=== PATIENT | male | born 1965 ===

== ENCOUNTER 2017-12-25 13:40 | Emergency (ER) | payer OTHER ==
[2017-12-25 15:05] VITALS: BP 148/102; PULSE 83; RESP 18; TEMP 98.1; O2SAT 100
[2017-12-25] MEDS ORDERED: Penicillin G Benzathine 2.4 Mill Unit/4 ml Syr IM STA (17:16)
--- NOTE | 2017-12-25 17:17 | C.PDOC ---
History Of Present Illness Patient presents to ED c/o B/L hand swelling, pain and lesions for the past 3 days. He reports a history of similar symptoms 16 years ago in [place], states he was given "penicillin injection" and symptoms resolved. He denies pain, fever, discharge, trauma/injuries. Time Seen by Provider: 12/25/17 17:01 Chief Complaint (Nursing): Abnormal Skin Integrity History Per: Patient History/Exam Limitations: no limitations Onset/Duration Of Symptoms: Days (3) Current Symptoms Are (Timing): Still Present Location Of Injury: Right: Hand, Left: Hand Severity: Moderate Past Medical History Reviewed: Historical Data, Nursing Documentation, Vital Signs Vital Signs: Last Vital Signs Temp 98.1 F 12/25/17 15:02 Pulse 83 12/25/17 15:02 Resp 18 12/25/17 15:02 BP 148/102 H 12/25/17 15:02 Pulse Ox 100 12/25/17 15:02 - Medical History PMH: No Chronic Diseases Family History: States: No Known Family Hx - Social History Hx Alcohol Use: No Hx Substance Use: No - Immunization History Hx Tetanus Toxoid Vaccination: No Hx Influenza Vaccination: No Hx Pneumococcal Vaccination: No Review Of Systems Except As Marked, All Systems Reviewed And Found Negative. Constitutional: Negative for: Fever, Chills Cardiovascular: Negative for: Chest Pain Respiratory: Negative for: Shortness of Breath Skin: Positive for: Rash (scattered pustules on B/L hands with swelling ) Physical Exam - Physical Exam Appears: Well, Non-toxic, No Acute Distress Skin: Other (scattered pustules on dorsum of B/L digits, no lesions on palms, two pustules on back of upper neck, nonvesicular ) Head: Normacephalic Eye(s): bilateral: Normal Inspection Oral Mucosa: Moist Cardiovascular: Rhythm Regular Respiratory: Normal Breath Sounds, No Rales, No Rhonchi, No Wheezing Neurological/Psych: Oriented x3 ED Course And Treatment O2 Sat by Pulse Oximetry: 100 Disposition Counseled Patient/Family Regarding: Diagnosis, Need For Followup, Rx Given - Disposition Disposition: HOME/ ROUTINE Disposition Time: 17:35 Condition: STABLE Additional Instructions: FOLLOW UP WITH YOUR DOCTOR/CLINIC IN 1-2 DAYS ELEVATE YOUR HANDS MUCH POSSIBLE TO DECREASE SWELLING USE MEDICATIONS DIRECTED RETURN TO ER IF SYMPTOMS WORSEN Prescriptions: Cephalexin [Keflex] 500 mg PO BID #14 capsule Naproxen 375 mg PO BID PRN #20 tablet PRN Reason: pain Sulfamethoxazole/Trimethoprim [Bactrim DS 800 mg-160 mg] 1 tab PO BID #14 tab Instructions: Cellulitis (Skin Infection), Adult (DC) Print Language: EAST TIMORESE - Clinical Impression Clinical Impression: Skin pustule, Cellulitis of hand
[2017-12-25] MEDS ORDERED: Naproxen 550 mg Tab PO STA (17:18)
[2017-12-25] MEDS ORDERED: Penicillin G Benzathine 2.4 Mill Unit/4 ml Syr IM ONE (17:35)
[2017-12-25] MEDS ORDERED: Naproxen 550 mg Tab PO ONE (17:35)
== END 2017-12-25 17:41 | disposition home or self-care (01) ==
LOC: C.ER 13:40
DX: L08.9 Local infection of the skin and subcutaneous tissue, unspecified (principal); L03.114 Cellulitis of left upper limb; L03.113 Cellulitis of right upper limb
CPT/HCPCS: 96372; 99283; J0561

== ENCOUNTER 2017-12-28 10:57 | Inpatient (IN) | payer OTHER ==
[2017-12-28 11:53] LABS: BASO # 0.1 K/uL (0.0-0.2); BASO % 0.6 % (0.0-2.0); EOS # 0.1 K/uL (0.0-0.7); EOS % 1.5 % (0.0-4.0); HEMOGLOBIN 15.2 g/dL (12.0-18.0); LYMPH # 1.9 K/uL (1.0-4.3); LYMPH % 19.5 % (20.0-40.0); MEAN CELL VOLUME 84.4 fL (80.0-94.0); MEAN CORPUSCULAR HEMOGLOBIN 28.5 pg (27.0-31.0); MEAN CORPUSCULAR HGB CONC 33.7 g/dL (33.0-37.0); MEAN PLATELET VOLUME 8.6 fL (7.2-11.7); MONO # 1.3 K/uL (0.0-0.8); MONO % 13.5 % (0.0-10.0); NEUT # 6.2 K/uL (1.8-7.0); NEUT % 64.9 % (50.0-75.0); NRBC % 0.1 % (0.0-2.0); RBC 5.34 Mil/uL (4.40-5.90); RED CELL DISTRIBUTION WIDTH 14.2 % (11.5-14.5); WHITE BLOOD COUNT 9.6 K/uL (4.8-10.8)
[2017-12-28 12:03] LABS: INR 1.2; PROTHROMBIN TIME 13.7 SECONDS (9.7-12.2)
[2017-12-28 12:06] LABS: ALBUMIN 4.2 g/dL (3.5-5.0); ALT/SGPT 65 U/L (21-72); AST/SGOT 42 U/L (17-59); BLOOD UREA NITROGEN 20 mg/dL (9-20); GFR AFRICAN-AMERICAN > 60; GFR NON-AFRICAN AMERICAN > 60
[2017-12-28] MEDS ORDERED: Vancomycin 1 gm/NS 200 ml 1 GM/200 ML BAG IVPB STA (12:31)
--- NOTE | 2017-12-28 14:01 | C.PDOC ---
History Of Present Illness 52 y/o male presents to ED with complaints of right infected finger associated with pain and swelling. Patient was seen at ED 2 days ago and given antibiotics , patient states he has taken medication as prescribed but finger continues to worsen. Patient states he had similar episodes years ago and denies fever, chills, nausea, vomiting, numbness or any other complaints at this time. Chief Complaint (Nursing): Abnormal Skin Integrity History Per: Patient History/Exam Limitations: no limitations Onset/Duration Of Symptoms: Days Current Symptoms Are (Timing): Still Present Past Medical History Reviewed: Historical Data, Nursing Documentation, Vital Signs Vital Signs: Last Vital Signs Temp 98.5 F 12/28/17 15:55 Pulse 89 12/28/17 15:55 Resp 20 12/28/17 15:55 BP 128/82 12/28/17 15:55 Pulse Ox 100 12/28/17 15:55 - Medical History PMH: No Chronic Diseases Surgical History: No Surg Hx Family History: States: No Known Family Hx - Social History Hx Alcohol Use: No Hx Substance Use: No - Immunization History Hx Tetanus Toxoid Vaccination: No Hx Influenza Vaccination: No Hx Pneumococcal Vaccination: No Review Of Systems Constitutional: Negative for: Fever, Chills Gastrointestinal: Negative for: Nausea, Vomiting Musculoskeletal: Positive for: Hand Pain Skin: Negative for: Rash Neurological: Negative for: Weakness, Numbness Physical Exam - Physical Exam Appears: Non-toxic, No Acute Distress Skin: Warm, Dry, No Rash Head: Atraumatic, Normacephalic Eye(s): bilateral: Normal Inspection Oral Mucosa: Moist Neck: Normal ROM, Supple Cardiovascular: Rhythm Regular Respiratory: Normal Breath Sounds, No Rales, No Rhonchi, No Wheezing Gastrointestinal/Abdominal: Soft, No Tenderness, No Guarding, No Rebound Extremity: Capillary Refill (<2 seconds), Swelling (to right hand), Other Extremity: Bilateral: Normal ROM Pulses: Left Radial: Normal, Right Radial: Normal Neurological/Psych: Oriented x3, Normal Motor, Normal Sensation ED Course And Treatment - Laboratory Results Result Diagrams: 12/28/17 11:49 12/28/17 11:49 O2 Sat by Pulse Oximetry: 99 (RA) Pulse Ox Interpretation: Normal Disposition - Disposition Disposition: HOSPITALIZED Disposition Time: 12:10 Condition: STABLE - Clinical Impression Clinical Impression: Abscess, Cellulitis - Scribe Statement Saida Gonzalez All medical record entries made by the Izzyibmagdalene were at my direction and personally dictated by me. I have reviewed the chart and agree that the record accurately reflects my personal performance of the history, physical exam, medical decision making, and the department course for this patient. I have also personally directed, reviewed, and agree with the discharge instructions and disposition.
--- NOTE | 2017-12-28 14:46 | CP.PCM.HP ---
History of Present Illness - History of Present Illness History of Present Illness: Patient is a 52 y/o male who presents with infected skin lesions on his L 5th digit, R 4th digit, and two on the back of his neck. He reports that the lesions on his neck developed first (about 1 week ago) and that the lesion on the R hand developed most recently (about 4 days ago). He states that he experienced an identical episode 16 years ago when he lived in [place]; he was told he had a "virus" and was given 5 consecutive daily shots of "Lincocin" during which he experienced full relief. He visited the [facility] ED 3 days prior where he was not admitted and was discharged on PO Keflex and Bactrim which he says have not helped. He complains of pain located to the areas of the lesions. He also reports of fevers and chills that resolved several days prior. He denies headache, sweats, weakness, muscle pain, rash, numbness/tingling, CP, SOB , palpitations, cough, congestion, N/V/C/D. PMH: Denies (with exception of prior episode of lesions 16 years ago) Surg: L knee injection 2 years ago FMH: Denies Meds: Denies (with exception of PO Keflex and Bactrim given to him in ED 3 days prior) Allergies: Seasonal, NKDA Social: Denies tobacco, alcohol, drug use Present on Admission - Present on Admission Any Indicators Present on Admission: No Review of Systems - Review of Systems All systems: reviewed and no additional remarkable complaints except (as per HPI ) Past Patient History - Infectious Disease Hx of Infectious Diseases: None - Past Social History Smoking Status: Never Smoked - MUSCULOSKELETAL/RHEUMATOLOGICAL Hx Falls: No - PSYCHIATRIC Hx Substance Use: No - SURGICAL HISTORY Hx Surgeries: Yes Other/Comment: knee surgery - ANESTHESIA Hx Anesthesia: Yes Hx Anesthesia Reactions: No Hx Malignant Hyperthermia: No Meds Allergies/Adverse Reactions: Allergies Allergy/AdvReac Type Severity Reaction Status Date / Time No Known Allergies Allergy Verified 12/28/17 11:04 Physical Exam - Constitutional Appears: Non-toxic, No Acute Distress - Head Exam Head Exam: ATRAUMATIC, NORMAL INSPECTION, NORMOCEPHALIC - Eye Exam Eye Exam: EOMI, Normal appearance, PERRL Pupil Exam: NORMAL ACCOMODATION, PERRL - ENT Exam ENT Exam: Mucous Membranes Moist, Normal Exam - Neck Exam Additional comments: 2 small indurated lesions of the left kelby kof his neck, mildly tender, no spreading erythema - Respiratory Exam Respiratory Exam: Clear to Auscultation Bilateral, NORMAL BREATHING PATTERN - Cardiovascular Exam Cardiovascular Exam: REGULAR RHYTHM, +S1, +S2 - GI/Abdominal Exam GI & Abdominal Exam: Normal Bowel Sounds, Soft. absent: Tenderness - Extremities Exam Additional comments: Small healing lesion of left 5th digit with minimal surrounding erythema Small erythmatous lesion of right 4th digit with purulent drainage and surrounding erythema up to the wrist; edema extending up to the distal forearm - Back Exam Back exam: NORMAL INSPECTION - Neurological Exam Neurological exam: Alert, Oriented x3 - Psychiatric Exam Psychiatric exam: Normal Affect, Normal Mood - Skin Skin Exam: Warm Results - Vital Signs Recent Vital Signs: Last Vital Signs Temp 98 F 12/28/17 13:58 Pulse 78 12/28/17 13:58 Resp 18 12/28/17 13:58 BP 136/76 12/28/17 13:58 Pulse Ox 99 12/28/17 14:05 - Labs Result Diagrams: 12/28/17 11:49 12/28/17 11:49 Labs: Laboratory Results - last 24 hr 12/28/17 12/28/17 12/28/17 11:49 11:49 11:49 WBC 9.6 RBC 5.34 Hgb 15.2 Hct 45.1 MCV 84.4 MCH 28.5 MCHC 33.7 RDW 14.2 Plt Count 216 MPV 8.6 Neut % (Auto) 64.9 Lymph % (Auto) 19.5 L [place] % (Auto) 13.5 H Eos % (Auto) 1.5 Baso % (Auto) 0.6 Neut # (Auto) 6.2 Lymph # (Auto) 1.9 [place] # (Auto) 1.3 H Eos # (Auto) 0.1 Baso # (Auto) 0.1 PT 13.7 H INR 1.2 APTT 30 Sodium 141 Potassium 4.0 Chloride 101 Carbon Dioxide 25 Anion Gap 19 BUN 20 Creatinine 0.7 L Est GFR ( Amer) > 60 Est GFR (Non-Af Amer) > 60 Random Glucose 93 Calcium 9.0 Total Bilirubin 0.9 AST 42 ALT 65 Alkaline Phosphatase 69 Total Protein 8.6 H Albumin 4.2 Globulin 4.4 H Albumin/Globulin Ratio 1.0 Assessment & Plan - Assessment and Plan (Free Text) Plan: Lesion of right hand with cellulitis and possible abscess * afebrile, no leukocytosis * Dr. Sultana consulted (hand surgery) * f/u hand XR * f/u CT hand * f/u blood cultures * f/u wound culture * Vancomycin 1 g IV QD * Tylenol prn pain Prophylaxis * DVT: Heparin, SCDs * GI: not indicated
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
[2017-12-28] MEDS ORDERED: Lidocaine 1% Inj (20ml) IV ONE (15:50)
[2017-12-28] MEDS ORDERED: Iohexol 300 100 ML IJ ONE (16:18)
--- NOTE | 2017-12-28 16:37 | RAD ---
PROCEDURE: Right ring finger radiographs. HISTORY: abscess r/o osteo COMPARISON: None. TECHNIQUE: AP radiograph of the right hand, as well as spot oblique and lateral images of ring finger were obtained. FINDINGS: RIGHT RING FINGER: No fracture periosteal reaction or cortical destruction seen. JOINTS: Normal. SOFT TISSUES: Marked soft tissue swelling specially 4th proximal digit the dorsal hand soft tissues are also markedly swollen on lateral view. No gas-forming cellulitis seen. OTHER FINDINGS: None. IMPRESSION: No periosteal reaction or cortical destruction to suggest osteomyelitis. Soft tissue swelling consistent with cellulitis. No gas-forming cellulitis noted. These images/imaging modality technique is not sensitive cannot to exclude any abscess. For this consider MRI of the hand
--- NOTE | 2017-12-28 16:47 | RAD ---
PROCEDURE: Left small finger radiographs. HISTORY: abscess r/o osteo COMPARISON: None. TECHNIQUE: AP radiograph of the left hand, as well as spot oblique and lateral images of left small finger were obtained. FINDINGS: LEFT SMALL FINGER: Soft tissue swelling 5th digit proximal aspect. No gas-forming cellulitis.No periosteal reaction or cortical destruction to suggest osteomyelitis. JOINTS: Remarkable SOFT TISSUES: Normal. OTHER FINDINGS: None. IMPRESSION: No periosteal reaction or cortical destruction to suggest osteomyelitis. Fifth digit soft tissue swelling -as above
--- NOTE | 2017-12-28 18:04 | CT ---
PROCEDURE: RIGHT HAND DUE WITH CONTRAST HISTORY: possible finger/hand abscess COMPARISON: Right 4th digit/ hand radiographs. TECHNIQUE: A volumetric CT acquisition of the right hand was performed following dynamic intravenous contrast administration utilizing Visipaque 320 and 100 cc total volume administered. Reformatted datasets provided in sagittal axial and coronal formats including surface rendering reconstructed series. Radiation dose:Total exam DLP = 231.35 mGy-cm. This CT exam was performed using one or more of the following dose reduction techniques: Automated exposure control, adjustment of the mA and/or kV according to patient size, and/or use of iterative reconstruction technique. FINDINGS: A cellulitis pattern is seen affecting the dorsal hand soft tissues diffusely increasingly towards the distal metacarpal level and diminishing towards the wrist soft tissues. This pattern persists into the left 4th digit dorsally where there is also no definitive abscess. An 8 mm abscess is not excluded overlying the distal metaphysis level of the 2nd metacarpal bone dorsally. No emphysematous soft tissue changes are identified throughout the examination and there is no periosteal reaction or cortical erosion to suggest possible osteomyelitis. MRI is more sensitive in that diagnosis however and can be performed as clinically warranted. The A dorsal hand soft tissues appear grossly nonfocal as well as those throughout the digits. No fracture, subluxation, dislocation or destructive bony lesion is identified. Vascular enhancement appears grossly nonfocal throughout. IMPRESSION: An 8 mm abscess may be present overlying the distal 2nd metacarpal bone dorsally with moderately extensive dorsal hand soft tissue edema identified extending into the 4th digit dorsally dorsal soft tissues as well. No abscess is clearly evident involving the 4th digit or any of the remaining digits. No overt CT pattern to suggest osteomyelitis however MRI is more sensitive.
[2017-12-29 07:13] LABS: BASO % 0.3 % (0.0-2.0); EOS # 0.2 K/uL (0.0-0.7); HEMOGLOBIN 14.5 g/dL (12.0-18.0); LYMPH # 1.6 K/uL (1.0-4.3); LYMPH % 31.2 % (20.0-40.0); MEAN CELL VOLUME 84.3 fL (80.0-94.0); MEAN CORPUSCULAR HEMOGLOBIN 28.6 pg (27.0-31.0); MEAN PLATELET VOLUME 8.5 fL (7.2-11.7); MONO # 0.8 K/uL (0.0-0.8); MONO % 15.4 % (0.0-10.0); NEUT # 2.6 K/uL (1.8-7.0); NEUT % 50.1 % (50.0-75.0); NRBC % 0.1 % (0.0-2.0); RBC 5.08 Mil/uL (4.40-5.90); RED CELL DISTRIBUTION WIDTH 14.2 % (11.5-14.5); WHITE BLOOD COUNT 5.3 K/uL (4.8-10.8)
[2017-12-29 07:30] LABS: BLOOD UREA NITROGEN 20 mg/dL (9-20); CALCIUM 8.4 mg/dl (8.6-10.4); GFR AFRICAN-AMERICAN > 60; GFR NON-AFRICAN AMERICAN > 60
[2017-12-29] MEDS: Saccharomyces Boulardi 250 mg Cap PO SCH ×2 (09:33→18:14)
[2017-12-29] MEDS ORDERED: Saccharomyces Boulardi 250 mg Cap PO SCH (10:00)
--- NOTE | 2017-12-29 10:47 | CP.PCM.PN ---
Subjective - Date & Time of Evaluation Date of Evaluation: 12/29/17 Time of Evaluation: 10:44 - Subjective Subjective: PGY-1 surgery progress note for Dr Dubose. No acute events noted overnight. Patient seen resting comfortably in bed. Stated his pain has improved as well as the swelling. Inquired as to why he was still here - informed that it is need for IV abx and possibly I&D of wound. Denied chest pain, shortness of breath, abdominal pain, nausea, vomiting, fever , chills. Objective - Vital Signs/Intake and Output Vital Signs (last 24 hours): Temp Pulse Resp BP Pulse Ox 97.7 F 75 18 110/71 98 12/29/17 07:05 12/29/17 07:05 12/29/17 07:05 12/29/17 07:05 12/29/17 07:05 - Medications Medications: Current Medications Acetaminophen (Tylenol 325mg Tab) 650 mg PO Q6 PRN PRN Reason: Pain, moderate (4-7) Heparin Sodium (Porcine) (Heparin) 5,000 units SC Q12 [facility] Last Admin: 12/29/17 09:33 Dose: 5,000 units Vancomycin/Sodium Chloride (Vancomycin 1 Gm/Ns 200 Ml) 1 gm in 200 mls @ 166.7 mls/hr IVPB Q24H [facility] PRN Reason: Protocol Stop: 01/03/18 12:01 Saccharomyces Boulardii (Florastor) 250 mg PO BID [facility] Last Admin: 12/29/17 09:33 Dose: 250 mg - Labs Labs: 12/29/17 07:01 12/29/17 07:01 PT 13.7 SECONDS (9.7-12.2) H 12/28/17 11:49 INR 1.2 12/28/17 11:49 APTT 30 SECONDS (21-34) 12/28/17 11:49 - Additional Findings Additional findings: - Constitutional Appears: Well, Non-toxic, No Acute Distress - Head Exam Head Exam: ATRAUMATIC, NORMOCEPHALIC - Eye Exam Eye Exam: Normal appearance. absent: Conjunctival injection, Scleral icterus - ENT Exam ENT Exam: Mucous Membranes Moist, Normal Oropharynx - Neck Exam Neck exam: Positive for: Full Rom - Respiratory Exam Respiratory Exam: NORMAL BREATHING PATTERN. absent: Accessory Muscle Use - Cardiovascular Exam Cardiovascular Exam: RRR - GI/Abdominal Exam GI & Abdominal Exam: Soft. absent: Distended, Tenderness - Extremities Exam Additional comments: Right dorsal hand edema, erythema, and induration extending to the PIP joint on fingers 2-4. circular necrotic draining lesion on the dorsal surface of Right fourth finger. Circular open necrotic lesion on dorsal surface of left fourth finger, no drainage, no surrounding erythema Small papule on the left posterior surface of the neck - Back Exam Back exam: NORMAL INSPECTION - Neurological Exam Neurological exam: Alert, Oriented x3 - Psychiatric Exam Psychiatric exam: Normal Affect, Normal Mood - Skin Skin Exam: Dry, Intact, Normal Color, Warm Additional comments: except as noted above Assessment and Plan - Assessment and Plan (Free Text) Assessment: Assessment: Patient it a 52M with cellulitis of right hand with possible abscess, lesion of left hand resolving. Plan: - bedside wound exploration of right hand lesion to encourage drainage - continue antibiotics - recommend soaking hand multiple times daily - CT of the right hand: * An 8 mm abscess may be present overlying the distal 2nd metacarpal bone dorsally with moderately extensive dorsal hand soft tissue edema identified extending into the 4th digit dorsally dorsal soft tissues as well. No abscess is clearly evident involving the 4th digit or any of the remaining digits. No overt CT pattern to suggest osteomyelitis however MRI is more sensitive. - Wound culture 12/28/17: * Gram positive cocci - close monitoring for tendon involvement - no surgical intervention planned at this time. - Recommend ID consult Will continue to follow
[2017-12-29] MEDS ORDERED: Vancomycin 1 gm/NS 200 ml 1 GM/200 ML BAG IVPB SCH (12:00)
--- NOTE | 2017-12-29 13:13 | CP.PCM.PN ---
<Marine Delarosa - Last Filed: 12/29/17 17:02> Subjective - Date & Time of Evaluation Date of Evaluation: 12/29/17 Time of Evaluation: 07:30 - Subjective Subjective: Patient seen and examined at bedside. Patient resting comfortably in bed with no new compaints at this time. Patient says he feels like the erythema has improved. He denies fever, chills, headache, chest pain, SOB, cough, palpitations, abdominal pain, n/v/d/c, and calf pain. Objective - Vital Signs/Intake and Output Vital Signs (last 24 hours): Temp Pulse Resp BP Pulse Ox 97.7 F 75 18 110/71 98 12/29/17 07:05 12/29/17 07:05 12/29/17 07:05 12/29/17 07:05 12/29/17 07:05 - Medications Medications: Current Medications Acetaminophen (Tylenol 325mg Tab) 650 mg PO Q6 PRN PRN Reason: Pain, moderate (4-7) Heparin Sodium (Porcine) (Heparin) 5,000 units SC Q12 [facility] Last Admin: 12/29/17 09:33 Dose: 5,000 units Vancomycin/Sodium Chloride (Vancomycin 1 Gm/Ns 200 Ml) 1 gm in 200 mls @ 166.7 mls/hr IVPB Q24H [facility] PRN Reason: Protocol Stop: 01/03/18 12:01 Last Admin: 12/29/17 11:27 Dose: 166.7 mls/hr Saccharomyces Boulardii (Florastor) 250 mg PO BID [facility] Last Admin: 12/29/17 09:33 Dose: 250 mg - Labs Labs: 12/29/17 07:01 12/29/17 07:01 PT 13.7 SECONDS (9.7-12.2) H 12/28/17 11:49 INR 1.2 12/28/17 11:49 APTT 30 SECONDS (21-34) 12/28/17 11:49 - Additional Findings Additional findings: - Constitutional Appears: Non-toxic, No Acute Distress - Head Exam Head Exam: ATRAUMATIC, NORMAL INSPECTION, NORMOCEPHALIC - Eye Exam Eye Exam: EOMI, Normal appearance, PERRL Pupil Exam: NORMAL ACCOMODATION, PERRL - ENT Exam ENT Exam: Mucous Membranes Moist, Normal Exam - Neck Exam Additional comments: 2 small indurated lesions of the left kelby kof his neck, mildly tender, no spreading erythema - Respiratory Exam Respiratory Exam: Clear to Auscultation Bilateral, NORMAL BREATHING PATTERN - Cardiovascular Exam Cardiovascular Exam: REGULAR RHYTHM, +S1, +S2 - GI/Abdominal Exam GI & Abdominal Exam: Normal Bowel Sounds, Soft. absent: Tenderness - Extremities Exam Additional comments: RIGHT hand edema, erythema, and induration extending from the dorsal wrist to the PIP joint on fingers 2-4. Small, circular necrotic draining lesion on the dorsal surface of RIGHT fourth digit Small circular lesion on dorsal surface of left fourth finger, no drainage, no surrounding erythema - Back Exam Back exam: NORMAL INSPECTION - Neurological Exam Neurological exam: Alert, Oriented x3 - Psychiatric Exam Psychiatric exam: Normal Affect, Normal Mood - Skin Skin Exam: Dry, Intact, Normal Color, Warm Additional comments: except as noted above on exam of extremities Assessment and Plan - Assessment and Plan (Free Text) Plan: RIGHT hand cellulitis with possible abscess * afebrile, no leukocytosis * Dr. Sultana consulted (hand surgery) * Recommends no surgical intervention at this time and only hand soaks * LEFT hand XR: No periosteal reaction or cortical destruction to suggest osteomyelitis. Fifth digit soft tissue swelling * RIGHT hand XR: No periosteal reaction or cortical destruction to suggest osteomyelitis. Soft tissue swelling consistent with cellulitis. No gas-forming cellulitis noted. These images/imaging modality technique is not sensitive cannot to exclude any abscess. For this consider MRI of the hand * CT hand: An 8 mm abscess may be present overlying the distal 2nd metacarpal bone dorsally with moderately extensive dorsal hand soft tissue edema identified extending into the 4th digit dorsally dorsal soft tissues as well. No abscess is clearly evident involving the 4th digit or any of the remaining digits. No overt CT pattern to suggest osteomyelitis however MRI is more sensitive * f/u MRI * f/u blood cultures * wound culture shows gram positive cocci * Vancomycin 1 g IV QD * f/u vanc trough * Zosyn 3.375 IV Q6 * Florastor (not within 2 hours of antibiotics) * Tylenol prn pain Prophylaxis * DVT: Heparin, SCDs * GI: not indicated <Mauri Ludwig - Last Filed: 12/29/17 20:01> Objective - Vital Signs/Intake and Output Vital Signs (last 24 hours): Temp Pulse Resp BP Pulse Ox 98 F 78 20 120/79 95 12/29/17 15:00 12/29/17 15:00 12/29/17 15:00 12/29/17 15:00 12/29/17 15:00 Intake and Output: 12/29/17 12/30/17 18:59 06:59 Intake Total 350 350 Balance 350 350 - Medications Medications: Current Medications Acetaminophen (Tylenol 325mg Tab) 650 mg PO Q6 PRN PRN Reason: Pain, moderate (4-7) Heparin Sodium (Porcine) (Heparin) 5,000 units SC Q12 [facility] Last Admin: 12/29/17 09:33 Dose: 5,000 units Piperacillin Sod/Tazobactam Sod (Zosyn 3.375 Gm Iv Premix) 3.375 gm in 50 mls @ 100 mls/hr IVPB Q6H [facility] PRN Reason: Protocol Last Admin: 12/29/17 16:10 Dose: 100 mls/hr Vancomycin HCl 1,250 mg/ (Sodium Chloride) 250 mls @ 133 mls/hr IVPB Q12H [facility] PRN Reason: Protocol Mupirocin (Bactroban Ointment) 1 gm NS BID [facility] Stop: 01/03/18 10:01 Last Admin: 12/29/17 19:26 Dose: 1 applic Saccharomyces Boulardii (Florastor) 250 mg PO BID [facility] Last Admin: 12/29/17 18:14 Dose: 250 mg - Labs Labs: 12/29/17 07:01 12/29/17 07:01 PT 13.7 SECONDS (9.7-12.2) H 12/28/17 11:49 INR 1.2 12/28/17 11:49 APTT 30 SECONDS (21-34) 12/28/17 11:49 Attending/Attestation - Attestation I have personally seen and examined this patient.: Yes I have fully participated in the care of the patient.: Yes I have reviewed all pertinent clinical information, including history, physical exam and plan: Yes Notes (Text): 12/29/17 19:59 Patient was seen and examined at 3:30 PM Exam, assessment and plan were gone over with the resident. F/U MRI Right Hand to help rule out Osteomyelitis. Added Zosyn 3.375 gm IV Q6H to Vancomycin 1 gm IV Q12H. F/U sensitivities to the wound culture and adjust antibiotics accordingly. F/U further recommendations from MANA Potts. Mauri Ludwig D.O.
[2017-12-29] MEDS ORDERED: Piperacillin/Tazobact 3.375 GM in Sodium Chloride 100 ML IVPB SCH (15:15)
[2017-12-29] MEDS: Piperacill/Tazo 3.375gm in Dex 3.375 GM/50 ML BAG IVPB SCH ×2 (16:10→21:38)
[2017-12-29 16:43] VITALS: RESP 20
[2017-12-29] MEDS ORDERED: Gadodiamide 287 mg/ml 20 ml IV ONE (17:20)
--- NOTE | 2017-12-29 18:41 | MRI ---
EXAM: MR Right Upper Extremity With Intravenous Contrast, Hand EXAM DATE/TIME: Exam ordered 12/29/2017 3:31 PM CLINICAL HISTORY: 52 years old, male; Signs and symptoms; Swelling; Fingers and hand; Right; Additional info: Right hand finger #4 abscess. R/O osteomyelitis TECHNIQUE: Multiplanar magnetic resonance images of the right hand with intravenous contrast. CONTRAST: 17 mL of 17 administered intravenously. COMPARISON: No relevant prior studies available. FINDINGS: LIGAMENTS: Medial collateral: Unremarkable. Lateral collateral: Unremarkable. Radial collateral: Unremarkable. Ulnar collateral: Unremarkable. TENDONS: Flexor: Unremarkable. Extensor: Unremarkable. Muscles: Unremarkable. Fluid: Unremarkable. No joint effusion. Cartilage: Unremarkable. Bones/joints: See below. Soft tissues: Soft tissue edema is noted involving the dorsum of the hand and extending into the third and fourth digits. There is enhancement of the soft tissues of the third and fourth digits as well as in the dorsum of the hand. No osseous enhancement is seen. No fluid collections. IMPRESSION: Soft tissue edema in the dorsum of the hand and the third and fourth digits reflecting cellulitis. No abscess seen. No osseous abnormalities noted.
--- NOTE | 2017-12-29 20:34 | CP.PCM.CON ---
History of Present Illness - History of Present Illness History of Present Illness: dictated Past Patient History - Infectious Disease Hx of Infectious Diseases: None - Past Medical History & Family History Past Medical History?: Yes Past Family History: Reviewed and not pertinent - Past Social History Smoking Status: Never Smoked Alcohol: None Drugs: Denies - CARDIAC Hx Cardiac Disorders: No - PULMONARY Hx Respiratory Disorders: No - NEUROLOGICAL Hx Neurological Disorder: No - HEENT Hx HEENT Problems: No - RENAL Hx Chronic Kidney Disease: No - ENDOCRINE/METABOLIC Hx Endocrine Disorders: No - HEMATOLOGICAL/ONCOLOGICAL Hx Blood Disorders: No - INTEGUMENTARY Hx Dermatological Problems: Yes Other/Comment: cellulitis right hand - MUSCULOSKELETAL/RHEUMATOLOGICAL Hx Falls: No - GASTROINTESTINAL Hx Gastrointestinal Disorders: No - GENITOURINARY/GYNECOLOGICAL Hx Genitourinary Disorders: No - PSYCHIATRIC Hx Substance Use: No - SURGICAL HISTORY Hx Surgeries: Yes Other/Comment: knee surgery - ANESTHESIA Hx Anesthesia: Yes Hx Anesthesia Reactions: No Hx Malignant Hyperthermia: No Meds Allergies/Adverse Reactions: Allergies Allergy/AdvReac Type Severity Reaction Status Date / Time No Known Allergies Allergy Verified 12/28/17 11:04 - Medications Medications: Current Medications Acetaminophen (Tylenol 325mg Tab) 650 mg PO Q6 PRN PRN Reason: Pain, moderate (4-7) Heparin Sodium (Porcine) (Heparin) 5,000 units SC Q12 [facility] Last Admin: 12/29/17 09:33 Dose: 5,000 units Piperacillin Sod/Tazobactam Sod (Zosyn 3.375 Gm Iv Premix) 3.375 gm in 50 mls @ 100 mls/hr IVPB Q6H [facility] PRN Reason: Protocol Last Admin: 12/29/17 16:10 Dose: 100 mls/hr Vancomycin HCl 1,250 mg/ (Sodium Chloride) 250 mls @ 133 mls/hr IVPB Q12H [facility] PRN Reason: Protocol Mupirocin (Bactroban Ointment) 1 gm NS BID [facility] Stop: 01/03/18 10:01 Last Admin: 12/29/17 19:26 Dose: 1 applic Saccharomyces Boulardii (Florastor) 250 mg PO BID [facility] Last Admin: 12/29/17 18:14 Dose: 250 mg Results - Vital Signs Recent Vital Signs: Last Vital Signs Temp 98 F 12/29/17 15:00 Pulse 78 12/29/17 15:00 Resp 20 12/29/17 15:00 BP 120/79 12/29/17 15:00 Pulse Ox 95 12/29/17 15:00 - Labs Result Diagrams: 12/29/17 07:01 12/29/17 07:01 Labs: Laboratory Results - last 24 hr 12/29/17 12/29/17 07:01 07:01 WBC 5.3 RBC 5.08 Hgb 14.5 Hct 42.8 MCV 84.3 MCH 28.6 MCHC 34.0 RDW 14.2 Plt Count 203 MPV 8.5 Neut % (Auto) 50.1 Lymph % (Auto) 31.2 [place] % (Auto) 15.4 H Eos % (Auto) 3.0 Baso % (Auto) 0.3 Neut # (Auto) 2.6 Lymph # (Auto) 1.6 [place] # (Auto) 0.8 Eos # (Auto) 0.2 Baso # (Auto) 0.0 Sodium 138 Potassium 4.0 Chloride 100 Carbon Dioxide 24 Anion Gap 18 BUN 20 Creatinine 0.6 L Est GFR ( Amer) > 60 Est GFR (Non-Af Amer) > 60 Random Glucose 91 Calcium 8.4 L
[2017-12-30 00:06] VITALS: TEMP 97.8; O2SAT 96
[2017-12-30] MEDS: Piperacill/Tazo 3.375gm in Dex 3.375 GM/50 ML BAG IVPB SCH ×2 (03:05→10:04)
--- NOTE | 2017-12-30 06:19 | CON ---
DATE: Consult requested by Dr. Mauri Ludwig. This patient is a 52-year-old male. He was admitted with a skin lesion on his left fifth and right fourth digits and two lesions on his back. He reports that he has these for 1 week and he initially came to the emergency room and was given p.o. antibiotics and was sent home 3 days ago with Keflex and Bactrim which he took for 3 days and did not help him and he has these lesions. He also reported that 16 years ago he had these similar lesions on his body and [place] and he denies any fevers right now, but he said he did have fever and chills several days ago. Denies any headaches. No nausea, no vomiting, no diarrhea. He just came back from an MRI which was done and we will wait for the report. He has some drainage from the right hand. Neck lesions are improving. Surgical history of left knee injection 2 years ago. He denies any history of diabetes. FAMILY HISTORY: His family history is noncontributory. MEDICATIONS: He was taking Keflex and Bactrim which was given to him in ED. ALLERGIES: HE HAS SEASONAL ALLERGIES. SOCIAL HISTORY: Denies any drugs, tobacco, or alcohol abuse. I asked him about his work and I do not remember him saying anything about his work. Present admission is noted. He has no infections in the past. He had similar thing 16 years ago, and he has had anesthesia before for the knee surgery. Other than that, he denies any other complaints. MEDICATIONS: He was on vancomycin and Zosyn, I just increased the dose. PHYSICAL EXAMINATION: VITAL SIGNS: His vitals show his temperature is 98 today, pulse 78, blood pressure 120/79, respirations are 20. HEENT: Head is atraumatic, normocephalic. Pupils are reacting to light. NECK: Supple. JVP is flat. LUNGS: Clear. No crackles or rales present. HEART: S1, S2 are regular. ABDOMEN: Soft, nontender. No guarding, no rigidity present. EXTREMITIES: Lower extremities have no edema. He has two healing abscesses which are healing on his right neck and almost healed in the finger. On the fourth finger, there is an open wound which is erythematous with some discharge and surrounding edema and swelling and purulent drainage from the right fourth digit. Fifth digit has minimal edema. It is almost healed, and he did have cellulitis extending to his right wrist which has receded since he has been here on antibiotics. NEURO: Unremarkable. LABORATORY DATA: Labs are noted. Labs show white count is 5.3, hemoglobin 14.5, hematocrit 42.3, platelet count is 203. He has a white count of 9.6 when he came. INR is 1.2. Sodium 138, potassium 4, chloride is 100, CO2 is 24. BUN is 20, creatinine is 0.6. Micro-pope, blood cultures have been negative. He had a wound culture which is , and we are waiting for the ID and sensitivity. He is also waiting for his MRI report which is just done, and the upper extremity MRI is actually back which shows soft tissue edema of the dorsum of the hand and third and fourth digits reflecting cellulitis, no abscess seen, no osseous abnormality, so he just has the soft tissue swelling with no abscesses noted and an upper extremity CT was done which initially showed an 8 mm abscess present over the distal second metatarsal of the bone dorsally and moderately extensive dorsal and soft tissue edema identified up to the fourth digit dorsal soft tissue. No abscess is clearly evident on the fourth digit or any of the remaining. At this time, all the studies just show that he had cellulitis of the hand with a localized small drainage, and he is clinically improving. We will see what the gram-positive cocci turns up into and continue vancomycin and Zosyn and hopefully by tomorrow if the results are there, he can probably go home and finish the Keflex and Bactrim. I also told him to wash his hands frequently as he may be a Staph aureus carrier and he would do well. Verenice Potts MD
--- NOTE | 2017-12-30 06:41 | CP.PCM.PN ---
Subjective - Date & Time of Evaluation Date of Evaluation: 12/30/17 Time of Evaluation: 06:05 - Subjective Subjective: Hand surgery progress note for Dr. Ramon Peters, PGY-1 Pt S & E at bedside. Pt reports hand swelliing/pain much improved. Denies N & V, F & C, other complaints. Is OOBTC, ambulating while awake. Objective - Vital Signs/Intake and Output Vital Signs (last 24 hours): Temp Pulse Resp BP Pulse Ox 97.8 F 73 20 111/69 96 12/29/17 23:05 12/29/17 23:05 12/29/17 23:05 12/29/17 23:05 12/29/17 23:05 Intake and Output: 12/29/17 12/30/17 18:59 06:59 Intake Total 350 450 Balance 350 450 - Medications Medications: Current Medications Acetaminophen (Tylenol 325mg Tab) 650 mg PO Q6 PRN PRN Reason: Pain, moderate (4-7) Heparin Sodium (Porcine) (Heparin) 5,000 units SC Q12 [facility] Last Admin: 12/29/17 21:36 Dose: 5,000 units Piperacillin Sod/Tazobactam Sod (Zosyn 3.375 Gm Iv Premix) 3.375 gm in 50 mls @ 100 mls/hr IVPB Q6H [facility] PRN Reason: Protocol Last Admin: 12/30/17 03:05 Dose: 100 mls/hr Vancomycin HCl 1,250 mg/ (Sodium Chloride) 250 mls @ 133 mls/hr IVPB Q12H [facility] PRN Reason: Protocol Mupirocin (Bactroban Ointment) 1 gm NS BID [facility] Stop: 01/03/18 10:01 Last Admin: 12/29/17 19:26 Dose: 1 applic Saccharomyces Boulardii (Florastor) 250 mg PO BID [facility] Last Admin: 12/29/17 18:14 Dose: 250 mg - Labs Labs: 12/29/17 07:01 12/29/17 07:01 PT 13.7 SECONDS (9.7-12.2) H 12/28/17 11:49 INR 1.2 12/28/17 11:49 APTT 30 SECONDS (21-34) 12/28/17 11:49 - Constitutional Appears: Non-toxic, No Acute Distress - Head Exam Head Exam: ATRAUMATIC, NORMAL INSPECTION, NORMOCEPHALIC - Eye Exam Eye Exam: EOMI, Normal appearance - ENT Exam ENT Exam: Mucous Membranes Moist, Normal Exam - Neck Exam Neck Exam: Full ROM, Normal Inspection - Respiratory Exam Respiratory Exam: NORMAL BREATHING PATTERN - Cardiovascular Exam Cardiovascular Exam: REGULAR RHYTHM, +S1, +S2 - GI/Abdominal Exam GI & Abdominal Exam: Soft. absent: Distended, Firm, Tenderness - Extremities Exam Extremities Exam: Tenderness (slight, over right hand MIP) Additional comments: Swelling and erythema of right dorsum of hand/3rd MIP much improved, dressing over wound with serosanguinous strike through on bandaid - Neurological Exam Neurological Exam: Alert, Awake, CN II-XII Intact, Oriented x3 - Psychiatric Exam Psychiatric exam: Normal Affect, Normal Mood - Skin Skin Exam: Dry, Intact, Normal Color, Warm Additional comments: Please see extremity exam for Right hand findings Assessment and Plan - Assessment and Plan (Free Text) Assessment: 52M w/Right hand cellulitis, draining abscess- improving Plan: Cont IV Abx Cont soaking hand in warm water Cont pain control No surgical intervention at this time ID following Will follow Will DEBRA attending Lorraine, PGY-1
[2017-12-30 07:43] VITALS: BP 113/73; PULSE 69
[2017-12-30 08:00] LABS: BASO % 0.5 % (0.0-2.0); EOS # 0.2 K/uL (0.0-0.7); EOS % 3.1 % (0.0-4.0); HEMOGLOBIN 14.3 g/dL (12.0-18.0); LYMPH % 38.2 % (20.0-40.0); MEAN CELL VOLUME 84.5 fL (80.0-94.0); MEAN CORPUSCULAR HEMOGLOBIN 28.4 pg (27.0-31.0); MEAN CORPUSCULAR HGB CONC 33.6 g/dL (33.0-37.0); MEAN PLATELET VOLUME 8.8 fL (7.2-11.7); MONO # 0.7 K/uL (0.0-0.8); NEUT # 2.4 K/uL (1.8-7.0); NEUT % 45.2 % (50.0-75.0); RBC 5.05 Mil/uL (4.40-5.90); RED CELL DISTRIBUTION WIDTH 14.4 % (11.5-14.5); WHITE BLOOD COUNT 5.3 K/uL (4.8-10.8)
[2017-12-30 08:14] LABS: BLOOD UREA NITROGEN 17 mg/dL (9-20); CALCIUM 8.6 mg/dl (8.6-10.4); GFR AFRICAN-AMERICAN > 60; GFR NON-AFRICAN AMERICAN > 60
[2017-12-30] MEDS: Saccharomyces Boulardi 250 mg Cap PO SCH (10:04)
[2017-12-30] MEDS ORDERED: Pneumococcal 23-Valent Vaccine IM ONE (10:33)
== END 2017-12-30 11:50 | disposition home or self-care (01) | DRG 277 ==
LOC: C.ER 10:57 → C.9E 12:13 → C.5S 13:26
PROVIDERS: ADMIT Internal Medicine; ATTEND Internal Medicine
DX: L03.113 Cellulitis of right upper limb (principal); L02.11 Cutaneous abscess of neck; L98.9 Disorder of the skin and subcutaneous tissue, unspecified; L02.511 Cutaneous abscess of right hand; B95.62 Methicillin resistant Staphylococcus aureus infection as the cause of diseases classified elsewhere